=== PATIENT | female | born 1985 | race African-American/Black ===

== ENCOUNTER 2017-03-27 13:08 | Emergency (ER) | payer MEDICARE, MEDICAID ==
[~2017-03-27] VITALS: Ht 165.1 cm; Wt 55.0 kg
[~2017-03-27 13:08] MED LIST: CLON0.3T PO; MINO10TA PO; SERT50TA PO
[2017-03-27 15:57] LABS: BASOPHILS % 0.6 % (0.0-2.0); EOSINOPHILS % 2.1 % (0.0-5.0); HEMATOCRIT. 37.3 % (36.0-48.0); HEMOGLOBIN. 12.5 g/dL (12.0-16.0); LYMPHOCYTES % 24.8 % (20.0-50.0); MEAN CORPUSCULAR HEMOGLOBIN 33.9 pg (28.0-32.0); MEAN CORPUSCULAR VOLUME 101.2 fL (81.0-99.0); MEAN PLATELET VOLUME 12.1 fl (7.4-10.4); MONOCYTES % 7.7 % (2.0-8.0); NEUTROPHILS % 64.8 % (40.0-76.0); PLATELET 116 x1000/uL (130-400); RED BLOOD CELL COUNT 3.69 mill/uL (4.2-5.4); RED CELL DISTRIBUTION WIDTH 18.2 % (11.6-14.6)
[2017-03-27] MEDS ORDERED: HYDROCODONE/ACETAMINOPHEN 5/325MG TABLET PO ONE (20:30)
[2017-03-27] MEDS ORDERED: MINOXIDIL 10MG TABLET PO ONE (20:30)
[2017-03-27] MEDS ORDERED: CLONIDINE 0.3MG TABLET PO ONE (20:30)
[2017-03-27 21:43] VITALS: BP 170/109
== END 2017-03-27 21:49 | disposition home or self-care (01) ==
LOC: ER 16:59
DX: T62.91XA Toxic effect of unspecified noxious substance eaten as food, accidental (unintentional), initial encounter (principal); I12.9 Hypertensive chronic kidney disease with stage 1 through stage 4 chronic kidney disease, or unspecified chronic kidney disease; N18.9 Chronic kidney disease, unspecified; Z99.2 Dependence on renal dialysis; Z88.3 Allergy status to other anti-infective agents; Z88.6 Allergy status to analgesic agent; Y92.89 Other specified places as the place of occurrence of the external cause
CPT/HCPCS: 36415; 80048; 85025; 99284

== ENCOUNTER 2017-10-21 12:21 | Inpatient (IN) | payer MEDICARE, MEDICAID ==
[~2017-10-21] VITALS: Ht 162.6 cm; Wt 67.1 kg
[2017-10-21 13:16] LABS: BASOPHILS % 0.7 % (0.0-2.0); HEMATOCRIT. 30.6 % (36.0-48.0); HEMOGLOBIN. 10.4 g/dL (12.0-16.0); LYMPHOCYTES % 9.4 % (20.0-50.0); MEAN CORPUSCULAR HEMOGLOBIN 32.7 pg (28.0-32.0); MEAN PLATELET VOLUME 9.4 fl (7.4-10.4); MONOCYTES % 3.8 % (2.0-8.0); NEUTROPHILS % 85.1 % (40.0-76.0); PLATELET 137 x1000/uL (130-400); RED BLOOD CELL COUNT 3.19 mill/uL (4.2-5.4); RED CELL DISTRIBUTION WIDTH 16.5 % (11.6-14.6)
[2017-10-21 13:19] LABS: CHLORIDE 102 mEq/L (98-107)
[2017-10-21 13:31] LABS: INR 1.1; PROTHROMBIN TIME 11.3 sec (9.4-11.6)
[2017-10-21] MEDS ORDERED: FAMOTIDINE 20MG/2ML VIAL IV STA (15:35)
[2017-10-21] MEDS ORDERED: ONDANSETRON HCL 4MG/2ML VIAL IV STA (15:35)
[2017-10-21] MEDS ORDERED: MORPHINE SULFATE 4 MG/ML CPJ (NOT FOR IM USE) IV STA (15:35)
[2017-10-21] MEDS ORDERED: DIPHENHYDRAMINE 50MG/ML VIAL IV ONE (15:45)
[2017-10-21 15:59] LABS: ETHANOL BLOOD < 10 mg/dL
[2017-10-21 16:01] LABS: HCG SCREEN NEGATIVE
[2017-10-21] MEDS ORDERED: DIPHENHYDRAMINE 50MG/ML VIAL IV SCH (16:30)
[2017-10-21] MEDS ORDERED: FAMOTIDINE 20MG/2ML VIAL IV SCH (16:30)
[2017-10-21] MEDS ORDERED: MORPHINE SULFATE 4 MG/ML CPJ (NOT FOR IM USE) IV SCH (16:30)
[2017-10-21] MEDS ORDERED: HYDRALAZINE 20MG/ML VIAL IV ONE (18:00)
[2017-10-21] MEDS ORDERED: ONDANSETRON HCL 4MG/2ML VIAL IV PRN (19:45)
[2017-10-21] MEDS ORDERED: IPRATROPIUM/ALBUTEROL 0.5-3(2.5)MG/3ML NEB INH PRN (19:45)
[2017-10-21] MEDS ORDERED: GUAIFENESIN 200MG/10ML SUGAR FREE UDC PO PRN (19:45)
[2017-10-21] MEDS ORDERED: MAGNESIUM/ALUMINUM HYDROXIDE/SIMETHICONE 30ML UDC PO PRN (19:45)
[2017-10-21] MEDS ORDERED: ACETAMINOPHEN 325MG TABLET PO PRN (19:45)
[2017-10-21] MEDS ORDERED: DOCUSATE SODIUM 100MG CAPSULE PO PRN (19:45)
[2017-10-21] MEDS ORDERED: LORAZEPAM 0.5MG TABLET PO PRN (19:45)
[2017-10-21] MEDS ORDERED: NITROGLYCERIN 0.4MG TABLET SL SL PRN (19:45)
[2017-10-21] MEDS ORDERED: TRAMADOL 50MG TABLET PO PRN (20:27)
[2017-10-21] MEDS: CLONIDINE 0.1MG TABLET PO PRN (20:48)
[2017-10-21] MEDS ORDERED: ZOLPIDEM TARTRATE 5MG TABLET PO PRN (21:00)
[2017-10-21] MEDS: METOPROLOL TARTRATE 25MG TABLET PO SCH (21:00)
[2017-10-21] MEDS ORDERED: FAMOTIDINE 20MG TABLET PO SCH (21:00)
[2017-10-21] MEDS ORDERED: NA PHOS,M-B/NA PHOS,DI-BA ENEMA 118ML PR PRN (21:00)
[2017-10-21 23:16] LABS: CREATINE KINASE MB FRACTION 0.6 ng/mL (0.5-3.6)
[2017-10-22] VITALS (7 sets, daily range): BP systolic 141–181; BP diastolic 88–105
[2017-10-22] MEDS ORDERED: DIPH25CA83 PO (02:35)
[2017-10-22] MEDS ORDERED: MINO2.5T19 PO (02:35)
[2017-10-22] MEDS: MORPHINE SULFATE 4 MG/ML CPJ (NOT FOR IM USE) IV PRN ×2 (03:19→22:49)
[2017-10-22] MEDS: DIPHENHYDRAMINE 50MG/ML VIAL IV PRN ×3 (03:19→22:50)
[2017-10-22] MEDS: CLONIDINE 0.1MG TABLET PO PRN (03:20)
[2017-10-22] MEDS: METOCLOPRAMIDE 10MG/10 ML UDC PO SCH ×3 (06:21→18:28)
[2017-10-22 08:08] LABS: CREATINE KINASE MB FRACTION 0.6 ng/mL (0.5-3.6)
[2017-10-22] MEDS ORDERED: FAMOTIDINE 20MG TABLET PO SCH (09:00)
[2017-10-22] MEDS ORDERED: AMLODIPINE 10MG TABLET PO SCH (09:00)
[2017-10-22] MEDS: METOPROLOL TARTRATE 25MG TABLET PO SCH (09:06)
[2017-10-22] MEDS: FOLIC ACID/VITAMIN B COMP W-C TABLET PO SCH (09:07)
[2017-10-22] MEDS: MINOXIDIL 10MG TABLET PO SCH ×2 (09:07→21:48)
[2017-10-22] MEDS: SEVELAMER CARBONATE 800 MG TABLET PO SCH ×3 (09:07→18:28)
[2017-10-22] MEDS ORDERED: HYDRALAZINE 20MG/ML VIAL IV PRN (09:45)
[2017-10-22] MEDS: OMEPRAZOLE 20MG CAPSULE EXTENDED RELEASE PO SCH (12:39)
[2017-10-22] MEDS: CALCIUM CARBONATE 500MG TABLET CHEW PO SCH ×2 (12:40→18:29)
[2017-10-22] MEDS: CLONIDINE 0.3MG TABLET PO SCH ×2 (14:00→22:49)
[2017-10-23] VITALS: BP 134/87
[2017-10-23] MEDS: DIPHENHYDRAMINE 50MG/ML VIAL IV PRN ×2 (02:52→08:28)
[2017-10-23] MEDS: MORPHINE SULFATE 4 MG/ML CPJ (NOT FOR IM USE) IV PRN (02:52)
[2017-10-23 03:34] VITALS: BP 145/93
[2017-10-23] MEDS: OMEPRAZOLE 20MG CAPSULE EXTENDED RELEASE PO SCH (06:19)
[2017-10-23] MEDS: METOCLOPRAMIDE 10MG/10 ML UDC PO SCH ×2 (06:19→11:24)
[2017-10-23] MEDS: CLONIDINE 0.3MG TABLET PO SCH ×2 (06:19→13:54)
[2017-10-23 07:22] LABS: BASOPHILS % 0.4 % (0.0-2.0); EOSINOPHILS % 5.6 % (0.0-5.0); HEMATOCRIT. 32.4 % (36.0-48.0); HEMOGLOBIN. 10.7 g/dL (12.0-16.0); MEAN CORPUSCULAR HEMOGLOBIN 32.3 pg (28.0-32.0); MEAN CORPUSCULAR VOLUME 97.8 fL (81.0-99.0); MEAN PLATELET VOLUME 10.1 fl (7.4-10.4); MONOCYTES % 4.8 % (2.0-8.0); NEUTROPHILS % 69.2 % (40.0-76.0); PLATELET 107 x1000/uL (130-400); RED BLOOD CELL COUNT 3.32 mill/uL (4.2-5.4); RED CELL DISTRIBUTION WIDTH 17.4 % (11.6-14.6)
[2017-10-23 07:45] LABS: PHOSPHORUS 3.3 mg/dL (2.5-4.9)
[2017-10-23 08:00] VITALS: BP 144/93
[2017-10-23] MEDS: MINOXIDIL 10MG TABLET PO SCH (08:27)
[2017-10-23] MEDS: CALCIUM CARBONATE 500MG TABLET CHEW PO SCH ×2 (08:27→11:24)
[2017-10-23] MEDS: SEVELAMER CARBONATE 800 MG TABLET PO SCH ×2 (08:27→11:24)
[2017-10-23] MEDS: FOLIC ACID/VITAMIN B COMP W-C TABLET PO SCH (08:28)
[2017-10-23] MEDS ORDERED: LOSARTAN POTASSIUM 50 MG TABLET PO SCH (09:00)
[2017-10-23] MEDS ORDERED: FOLIC ACID/VITAMIN B COMP W-C TABLET PO SCH (09:00)
[2017-10-23] MEDS ORDERED: LOSA50TA3 PO (09:51)
[2017-10-23] MEDS ORDERED: METO-293 PO (09:52)
[2017-10-23] MEDS ORDERED: OMEP20CA10 PO (09:52)
[2017-10-23 10:44] VITALS: BP 135/78
[2017-10-23 12:00] VITALS: BP 130/85
== END 2017-10-23 15:10 | disposition home or self-care (01) | DRG 291 ==
LOC: ER 12:32 → EDBEDREQ 18:45 → SUPCPDRO 21:51 → ENRESERV 22:31 → 8WST 22:31
PROVIDERS: ADMIT Internal Medicine; ATTEND Internal Medicine
PROC: 5A1D70Z Performance of Urinary Filtration, Intermittent, Less than 6 Hours Per Day (ICD-10-PCS; principal; 2017-10-22)
DX: I13.2 Hypertensive heart and chronic kidney disease with heart failure and with stage 5 chronic kidney disease, or end stage renal disease (principal); N18.6 End stage renal disease; D69.6 Thrombocytopenia, unspecified; E83.39 Other disorders of phosphorus metabolism; N25.81 Secondary hyperparathyroidism of renal origin; I50.33 Acute on chronic diastolic (congestive) heart failure; K29.70 Gastritis, unspecified, without bleeding; D63.8 Anemia in other chronic diseases classified elsewhere; N20.0 Calculus of kidney; G89.29 Other chronic pain; R63.4 Abnormal weight loss; Z99.2 Dependence on renal dialysis; Z82.49 Family history of ischemic heart disease and other diseases of the circulatory system; Z79.899 Other long term (current) drug therapy; Z83.3 Family history of diabetes mellitus; Z88.6 Allergy status to analgesic agent; Z88.1 Allergy status to other antibiotic agents; Z88.8 Allergy status to other drugs, medicaments and biological substances
CPT/HCPCS: 36415; 71045; 74176; 80048; 80053; 80061; 82550; 82553; 83036; 83690; 83735; 83880; 84100; 84484; 84703; 85025; 85610; 87040; 93005; 93970; 96374; 96375; 96376; 99285; G0482; J0360; J1200; J2270; J2405; J3490; J7030; J8597

== ENCOUNTER 2019-07-04 18:13 | Inpatient (IN) | payer MEDICARE, MEDICAID ==
[~2019-07-04] VITALS: Ht 165.1 cm; Wt 49.9 kg
[~2019-07-04 18:13] MED LIST changes: +DIPH25CA83 PO; +LOSA50TA3 PO; +METO-293 PO; -MINO10TA PO; +MINO2.5T19 PO; +OMEP20CA5 PO; -SERT50TA PO
[2019-07-04] MEDS ORDERED: CLONIDINE 0.2MG TABLET PO NR (22:30)
[2019-07-04] MEDS ORDERED: KETOROLAC 30MG/ML VIAL IV ONE (22:30)
[2019-07-04] MEDS ORDERED: SODIUM CHLORIDE 0.9% 500 ML IV ONE (22:30)
[2019-07-04 22:46] LABS: BASOPHILS % 1.2 % (0.0-2.0); EOSINOPHILS % 2.9 % (0.0-5.0); HEMATOCRIT. 34.1 % (36.0-48.0); HEMOGLOBIN. 11.2 g/dL (12.0-16.0); LYMPHOCYTES % 21.3 % (20.0-50.0); MEAN CORPUSCULAR HEMOGLOBIN 32.2 pg (28.0-32.0); MEAN CORPUSCULAR VOLUME 97.7 fL (81.0-99.0); MEAN PLATELET VOLUME 10.5 fl (7.4-10.4); NEUTROPHILS % 68.6 % (40.0-76.0); PLATELET 111 x1000/uL (130-400); RED BLOOD CELL COUNT 3.49 mill/uL (4.2-5.4); RED CELL DISTRIBUTION WIDTH 19.1 % (11.6-14.6)
[2019-07-04 22:51] LABS: HCG SCREEN NEGATIVE
[2019-07-04 22:52] LABS: CHLORIDE 105 mEq/L (98-107)
[2019-07-04] MEDS ORDERED: HYDRALAZINE 20MG/ML VIAL IV ONE (23:30)
[2019-07-05] MEDS: BENZONATATE 100MG CAPSULE PO ONE ×2 (00:33→00:36)
[2019-07-05] MEDS ORDERED: HYDRALAZINE 20MG/ML VIAL IV ONE (01:30)
[2019-07-05] MEDS ORDERED: HYDRALAZINE 20MG/ML VIAL IV PRN ×2 (02:00→03:45)
[2019-07-05] MEDS ORDERED: GUAIFENESIN 200MG/10ML SUGAR FREE UDC PO PRN (02:00)
[2019-07-05] MEDS ORDERED: ONDANSETRON HCL 4MG/2ML INJ IV PRN (02:00)
[2019-07-05] MEDS ORDERED: CLONIDINE 0.1MG TABLET PO PRN (02:00)
[2019-07-05] MEDS: IPRATROPIUM/ALBUTEROL 0.5-3(2.5)MG/3ML NEB HHN SCH (02:30)
[2019-07-05] MEDS ORDERED: LEVOFLOXACIN 500MG PREMIX 100 ML IV NR (02:45)
[2019-07-05] MEDS: DIPHENHYDRAMINE 50MG/ML VIAL IV PRN ×3 (03:04→19:36)
[2019-07-05] MEDS: IPRATROPIUM/ALBUTEROL 0.5-3(2.5)MG/3ML NEB HHN PRN (04:20)
[2019-07-05] MEDS: ACETAMINOPHEN 325MG TABLET PO PRN ×2 (05:50→09:38)
[2019-07-05] MEDS: CLONIDINE 0.3MG TABLET PO SCH ×3 (08:22→21:08)
[2019-07-05] MEDS ORDERED: MINOXIDIL 2.5MG TABLET PO SCH (09:00)
[2019-07-05] MEDS ORDERED: FAMOTIDINE 20MG/2ML VIAL IV SCH (09:00)
[2019-07-05] MEDS ORDERED: MINOXIDIL 10MG TABLET PO SCH (11:15)
[2019-07-05] MEDS: FAMOTIDINE 20MG/2ML VIAL IV SCH (11:47)
[2019-07-05] MEDS ORDERED: LABETALOL 5MG/ML SYR 20 MG/4 ML SYRINGE IV ONE (12:30)
[2019-07-05 16:00] VITALS: BP 183/118
[2019-07-05 16:15] VITALS: BP 183/118
[2019-07-05] MEDS: CALCIUM CARBONATE 500MG TABLET CHEW PO SCH (17:58)
[2019-07-05] MEDS: BENZONATATE 100MG CAPSULE PO SCH ×2 (18:00→21:09)
[2019-07-05 20:00] VITALS: BP 179/108
[2019-07-05] MEDS: GUAIFENESIN 600MG ER TABLET PO SCH (21:08)
[2019-07-05] MEDS: MINOXIDIL 10MG TABLET PO SCH (21:09)
[2019-07-06] VITALS: BP 161/105
[2019-07-06 04:00] VITALS: BP 183/111
[2019-07-06] MEDS: BENZONATATE 100MG CAPSULE PO SCH ×3 (05:13→22:15)
[2019-07-06] MEDS: DIPHENHYDRAMINE 50MG/ML VIAL IV PRN ×4 (05:14→20:19)
[2019-07-06] MEDS: CLONIDINE 0.3MG TABLET PO SCH ×3 (05:14→22:19)
[2019-07-06 05:57] LABS: BASOPHILS % 1.3 % (0.0-2.0); EOSINOPHILS % 2.3 % (0.0-5.0); HEMATOCRIT. 32.9 % (36.0-48.0); LYMPHOCYTES % 24.7 % (20.0-50.0); MEAN CORPUSCULAR HEMOGLOBIN 31.9 pg (28.0-32.0); MEAN CORPUSCULAR VOLUME 95.6 fL (81.0-99.0); MONOCYTES % 5.9 % (2.0-8.0); NEUTROPHILS % 65.8 % (40.0-76.0); PLATELET 105 x1000/uL (130-400); RED BLOOD CELL COUNT 3.44 mill/uL (4.2-5.4); RED CELL DISTRIBUTION WIDTH 19.5 % (11.6-14.6)
[2019-07-06 06:24] LABS: PHOSPHORUS 6.2 mg/dL (2.5-4.9)
[2019-07-06 08:00] VITALS: BP 177/101
[2019-07-06] MEDS: CALCIUM CARBONATE 500MG TABLET CHEW PO SCH ×3 (08:10→17:31)
[2019-07-06] MEDS: CLONIDINE 0.1MG TABLET PO PRN ×3 (08:27→22:15)
[2019-07-06] MEDS: IPRATROPIUM/ALBUTEROL 0.5-3(2.5)MG/3ML NEB HHN SCH ×3 (08:40→20:47)
[2019-07-06] MEDS: FAMOTIDINE 20MG/2ML VIAL IV SCH (09:00)
[2019-07-06] MEDS: IPRATROPIUM/ALBUTEROL 0.5-3(2.5)MG/3ML NEB HHN PRN (09:45)
[2019-07-06 12:00] VITALS: BP 202/106
[2019-07-06] MEDS: FOLIC ACID/VITAMIN B COMP W-C TABLET PO SCH (12:06)
[2019-07-06] MEDS: GUAIFENESIN 600MG ER TABLET PO SCH ×2 (12:06→20:18)
[2019-07-06] MEDS: MINOXIDIL 10MG TABLET PO SCH ×2 (12:06→21:00)
[2019-07-06] MEDS: NIFEDIPINE XL 30MG TAB PO SCH ×2 (13:50→22:16)
[2019-07-06 17:20] VITALS: BP 198/104
[2019-07-06 20:00] VITALS: BP 168/90
[2019-07-06] MEDS ORDERED: FAMOTIDINE 20MG TABLET PO SCH (21:00)
[2019-07-07] VITALS: BP 150/87
[2019-07-07] MEDS: DIPHENHYDRAMINE 50MG/ML VIAL IV PRN ×2 (01:48→08:43)
[2019-07-07] MEDS: IPRATROPIUM/ALBUTEROL 0.5-3(2.5)MG/3ML NEB HHN SCH ×3 (01:51→16:45)
[2019-07-07 04:00] VITALS: BP 165/94
[2019-07-07] MEDS: BENZONATATE 100MG CAPSULE PO SCH ×2 (05:15→14:05)
[2019-07-07] MEDS: CLONIDINE 0.3MG TABLET PO SCH ×2 (05:16→12:46)
[2019-07-07 08:00] VITALS: BP 149/96
[2019-07-07] MEDS ORDERED: LEVOFLOXACIN 250MG PREMIX 50 ML IV SCH (08:00)
[2019-07-07] MEDS: NIFEDIPINE XL 30MG TAB PO SCH (08:42)
[2019-07-07] MEDS: GUAIFENESIN 600MG ER TABLET PO SCH (08:42)
[2019-07-07] MEDS: FOLIC ACID/VITAMIN B COMP W-C TABLET PO SCH (08:42)
[2019-07-07] MEDS: CALCIUM CARBONATE 500MG TABLET CHEW PO SCH ×2 (08:43→12:46)
[2019-07-07] MEDS: MINOXIDIL 10MG TABLET PO SCH (08:43)
[2019-07-07] MEDS ORDERED: LEVOFLOXACIN 250MG TABLET PO SCH ×2 (09:00→11:00)
[2019-07-07 12:00] VITALS: BP 190/112
[2019-07-07 15:38] VITALS: BP 171/98
[2019-07-07 16:00] VITALS: BP 176/98
[2019-07-07] MEDS ORDERED: NIFEDIPINE XL 30MG TAB PO SCH (21:00)
== END 2019-07-07 17:38 | disposition home or self-care (01) | DRG 304 ==
LOC: ER 18:36 → 7WST 07-05 01:30 → EDBEDREQSVC 07-05 07:39 → CANRESERV 07-05 14:02 → ENRESERV 07-05 14:02 → UNDODISIN 07-07 16:47
PROVIDERS: ADMIT Internal Medicine; ATTEND Internal Medicine
PROC: 5A1D70Z Performance of Urinary Filtration, Intermittent, Less than 6 Hours Per Day (ICD-10-PCS; principal; 2019-07-06)
DX: I16.0 Hypertensive urgency (principal); N18.6 End stage renal disease; N25.81 Secondary hyperparathyroidism of renal origin; J20.9 Acute bronchitis, unspecified; I12.0 Hypertensive chronic kidney disease with stage 5 chronic kidney disease or end stage renal disease; E87.5 Hyperkalemia; R60.0 Localized edema; F12.90 Cannabis use, unspecified, uncomplicated; Z99.2 Dependence on renal dialysis; Z83.3 Family history of diabetes mellitus; Z84.1 Family history of disorders of kidney and ureter; Z87.442 Personal history of urinary calculi; Z87.01 Personal history of pneumonia (recurrent); Z88.5 Allergy status to narcotic agent; Z88.1 Allergy status to other antibiotic agents
CPT/HCPCS: 36415; 71045; 80048; 80053; 83880; 84100; 84484; 84703; 85025; 87804; 93005; 94640; 96365; 96375; 96376; 99291; J0360; J1200; J1885; J1956; J3490; J7040; J7620

== ENCOUNTER 2019-08-27 12:28 | Inpatient (IN) | payer MEDICARE, MEDICAID ==
[~2019-08-27] VITALS: Ht 165.1 cm; Wt 22.7 kg
[~2019-08-27 12:28] MED LIST changes: +OMEP20CA14 PO; -OMEP20CA5 PO
[2019-08-27] MEDS ORDERED: HYDRALAZINE 20MG/ML VIAL IV ONE ×2 (14:30→16:45)
[2019-08-27 15:31] LABS: BASOPHILS % 1.4 % (0.0-2.0); EOSINOPHILS % 1.3 % (0.0-5.0); HEMATOCRIT. 38.3 % (36.0-48.0); HEMOGLOBIN. 12.6 g/dL (12.0-16.0); LYMPHOCYTES % 20.5 % (20.0-50.0); MEAN CORPUSCULAR HEMOGLOBIN 32.5 pg (28.0-32.0); MEAN CORPUSCULAR VOLUME 99.1 fL (81.0-99.0); MEAN PLATELET VOLUME 8.9 fl (7.4-10.4); MONOCYTES % 4.5 % (2.0-8.0); NEUTROPHILS % 72.3 % (40.0-76.0); PLATELET 140 x1000/uL (130-400); RED BLOOD CELL COUNT 3.87 mill/uL (4.2-5.4); RED CELL DISTRIBUTION WIDTH 20.4 % (11.6-14.6)
[2019-08-27 15:33] LABS: CHLORIDE 94 mEq/L (98-107)
[2019-08-27 15:41] LABS: HCG SCREEN NEGATIVE
[2019-08-27 15:49] LABS: INR 1.2; PROTHROMBIN TIME 12.6 sec (9.6-11.0)
[2019-08-27] MEDS ORDERED: ACETAMINOPHEN 325MG TABLET PO ONE (16:30)
[2019-08-27] MEDS ORDERED: DIPHENHYDRAMINE 25MG CAPSULE PO ONE (16:30)
[2019-08-27] MEDS ORDERED: DOCUSATE SODIUM 100MG CAPSULE PO PRN (17:45)
[2019-08-27] MEDS ORDERED: ACETAMINOPHEN 325MG TABLET PO PRN (17:45)
[2019-08-27] MEDS ORDERED: IPRATROPIUM/ALBUTEROL 0.5-3(2.5)MG/3ML NEB NEB PRN (17:45)
[2019-08-27] MEDS ORDERED: MAGNESIUM/ALUMINUM HYDROXIDE/SIMETHICONE 30ML UDC PO PRN (17:45)
[2019-08-27] MEDS ORDERED: ONDANSETRON HCL 4MG/2ML INJ IV PRN (17:45)
[2019-08-27] MEDS ORDERED: GUAIFENESIN 200MG/10ML SUGAR FREE UDC PO PRN (17:45)
[2019-08-27] MEDS ORDERED: LOSARTAN POTASSIUM 50 MG TABLET PO SCH (18:00)
[2019-08-27] MEDS ORDERED: NIFEDIPINE XL 90MG TAB PO SCH (18:00)
[2019-08-27] MEDS: ENOXAPARIN 30MG/0.3ML SYR SUBCUT SCH (18:01)
[2019-08-27] MEDS: MINOXIDIL 10MG TABLET PO SCH (19:00)
[2019-08-27] MEDS: CLONIDINE 0.1MG TABLET PO PRN (19:00)
[2019-08-27] MEDS: DIPHENHYDRAMINE 50MG/ML VIAL IV PRN ×2 (19:01→21:18)
[2019-08-27] MEDS: LORAZEPAM 0.5MG TABLET PO PRN (21:19)
[2019-08-27] MEDS ORDERED: CLONIDINE 0.3MG TABLET PO SCH (23:15)
[2019-08-28] MEDS: LORAZEPAM 0.5MG TABLET PO PRN (02:04)
[2019-08-28] MEDS: CLONIDINE 0.1MG TABLET PO PRN ×2 (02:04→12:32)
[2019-08-28 02:55] VITALS: BP 176/110
[2019-08-28 04:00] VITALS: BP 176/117
[2019-08-28] MEDS: ZOLPIDEM TARTRATE 5MG TABLET PO PRN ×2 (04:45→21:46)
[2019-08-28] MEDS: MINOXIDIL 10MG TABLET PO SCH ×2 (06:15→18:00)
[2019-08-28 07:27] LABS: EOSINOPHILS % 0.3 % (0.0-5.0); HEMATOCRIT. 36.6 % (36.0-48.0); HEMOGLOBIN. 12.1 g/dL (12.0-16.0); LYMPHOCYTES % 12.6 % (20.0-50.0); MEAN CORPUSCULAR HEMOGLOBIN 32.1 pg (28.0-32.0); MEAN CORPUSCULAR VOLUME 97.3 fL (81.0-99.0); MEAN PLATELET VOLUME 9.2 fl (7.4-10.4); MONOCYTES % 5.3 % (2.0-8.0); NEUTROPHILS % 80.8 % (40.0-76.0); PLATELET 151 x1000/uL (130-400); RED BLOOD CELL COUNT 3.76 mill/uL (4.2-5.4); RED CELL DISTRIBUTION WIDTH 21.3 % (11.6-14.6)
[2019-08-28 07:59] LABS: PHOSPHORUS 3.6 mg/dL (2.5-4.9)
[2019-08-28 08:00] VITALS: BP 190/111
[2019-08-28 08:04] LABS: CREATINE KINASE MB FRACTION 4.2 ng/mL (0.5-3.6)
[2019-08-28] MEDS: CALCIUM CARBONATE 500MG TABLET CHEW PO SCH ×3 (08:39→18:17)
[2019-08-28] MEDS: CLONIDINE 0.3MG TABLET PO SCH ×2 (08:39→16:54)
[2019-08-28] MEDS: FAMOTIDINE 20MG TABLET PO SCH (08:39)
[2019-08-28] MEDS ORDERED: SEVELAMER CARBONATE 800 MG TABLET PO SCH (09:00)
[2019-08-28] MEDS ORDERED: DIATR MEGLU/DIATRIZOATE SOLN 30ML PO SCH (09:30)
[2019-08-28] MEDS: CARVEDILOL 6.25 MG TABLET PO SCH ×2 (09:43→21:46)
[2019-08-28] MEDS: DIPHENHYDRAMINE 50MG/ML VIAL IV PRN ×3 (10:27→23:05)
[2019-08-28 12:00] VITALS: BP 184/115
[2019-08-28] MEDS: METOCLOPRAMIDE HCL 5MG TABLET PO SCH ×3 (12:32→21:46)
[2019-08-28 16:00] VITALS: BP 180/106
[2019-08-28] MEDS: ENOXAPARIN 30MG/0.3ML SYR SUBCUT SCH ×2 (18:00→18:17)
[2019-08-28] MEDS ORDERED: NIFEDIPINE XL 30MG TAB PO SCH (18:00)
[2019-08-28 20:00] VITALS: BP 182/108
[2019-08-29] VITALS: BP 179/106
[2019-08-29] MEDS: CLONIDINE 0.1MG TABLET PO PRN ×2 (00:42→13:16)
[2019-08-29] MEDS: CLONIDINE 0.3MG TABLET PO SCH ×2 (00:43→08:01)
[2019-08-29 04:00] VITALS: BP 203/108
[2019-08-29] MEDS: MINOXIDIL 10MG TABLET PO SCH (05:28)
[2019-08-29] MEDS: DIPHENHYDRAMINE 50MG/ML VIAL IV PRN ×2 (05:29→12:16)
[2019-08-29 08:00] VITALS: BP 178/118
[2019-08-29] MEDS: CALCIUM CARBONATE 500MG TABLET CHEW PO SCH ×2 (08:01→13:48)
[2019-08-29] MEDS: METOCLOPRAMIDE HCL 5MG TABLET PO SCH ×2 (08:01→13:48)
[2019-08-29] MEDS: CARVEDILOL 6.25 MG TABLET PO SCH (08:01)
[2019-08-29] MEDS: FAMOTIDINE 20MG TABLET PO SCH (08:01)
[2019-08-29 08:13] LABS: BASOPHILS % 1.1 % (0.0-2.0); EOSINOPHILS % 3.1 % (0.0-5.0); HEMATOCRIT. 35.6 % (36.0-48.0); HEMOGLOBIN. 11.7 g/dL (12.0-16.0); LYMPHOCYTES % 21.8 % (20.0-50.0); MEAN CORPUSCULAR HEMOGLOBIN 32.6 pg (28.0-32.0); MEAN CORPUSCULAR VOLUME 99.2 fL (81.0-99.0); MONOCYTES % 5.6 % (2.0-8.0); NEUTROPHILS % 68.4 % (40.0-76.0); PLATELET 121 x1000/uL (130-400); RED BLOOD CELL COUNT 3.59 mill/uL (4.2-5.4); RED CELL DISTRIBUTION WIDTH 21.3 % (11.6-14.6)
[2019-08-29 09:05] LABS: CHLORIDE 104 mEq/L (98-107)
[2019-08-29 09:12] LABS: PHOSPHORUS 3.1 mg/dL (2.5-4.9)
[2019-08-29 09:50] VITALS: BP 178/118
[2019-09-03 04:07] LABS: METANEPHRINE PLASMA 183 pg/mL (0-62); NORMETANEPHRINE PLASMA 774 pg/mL (0-145)
== END 2019-08-29 15:05 | disposition left against medical advice (07) | DRG 291 ==
LOC: ER 12:44 → EDBEDREQ 17:37 → EDBEDREQTM 17:37 → ENRESERV 23:12 → 7WST 08-28 00:46
PROVIDERS: ADMIT Internal Medicine; ATTEND Internal Medicine
PROC: 5A1D70Z Performance of Urinary Filtration, Intermittent, Less than 6 Hours Per Day (ICD-10-PCS; principal; 2019-08-29)
DX: I13.2 Hypertensive heart and chronic kidney disease with heart failure and with stage 5 chronic kidney disease, or end stage renal disease (principal); N18.6 End stage renal disease; E87.1 Hypo-osmolality and hyponatremia; I50.30 Unspecified diastolic (congestive) heart failure; E21.3 Hyperparathyroidism, unspecified; F32.9 Major depressive disorder, single episode, unspecified; K21.9 Gastro-esophageal reflux disease without esophagitis; D64.9 Anemia, unspecified; Z91.14 Patient's other noncompliance with medication regimen; Z99.2 Dependence on renal dialysis; Z79.899 Other long term (current) drug therapy; Z82.49 Family history of ischemic heart disease and other diseases of the circulatory system; Z87.11 Personal history of peptic ulcer disease; Z88.6 Allergy status to analgesic agent; Z88.1 Allergy status to other antibiotic agents
CPT/HCPCS: 36415; 71045; 74176; 80048; 80053; 82533; 82550; 82553; 83036; 83835; 84100; 84484; 84703; 85025; 93005; 93970; 99285; J0360; J1200; J1650; J2405; J8597; Q0163; Q9963

== ENCOUNTER → 2021-08-02 | Outpatient (CLI) | payer MEDICARE, MEDICAID | END | disposition home or self-care (01) | LOC: US 07:19 | PROVIDERS: ATTEND Internal Medicine Gastroenterology | DX: R18.8 Other ascites (principal); R10.9 Unspecified abdominal pain | CPT/HCPCS: 76705 ==

== ENCOUNTER 2022-07-15 15:46 | Emergency (ER) | payer MEDICARE, MEDICAID | END 2022-07-15 16:26 | disposition left against medical advice (07) | LOC: ER 15:46 | DX: Z53.21 Procedure and treatment not carried out due to patient leaving prior to being seen by health care provider (principal) ==

== ENCOUNTER 2022-07-15 17:08 | Emergency (ER) | payer MEDICARE, MEDICAID ==
[~2022-07-15] VITALS: Ht 165.1 cm; Wt 53.0 kg
[2022-07-15 17:38] VITALS: BP 160/93
[2022-07-15 21:14] LABS: BASOPHILS % 0.9 % (0.0-2.0); EOSINOPHILS % 0.1 % (0.0-5.0); HEMATOCRIT. 24.3 % (36.0-48.0); HEMOGLOBIN. 8.1 g/dL (12.0-16.0); LYMPHOCYTES % 10.5 % (20.0-50.0); MEAN CORPUSCULAR HEMOGLOBIN 30.4 pg (28.0-32.0); MEAN CORPUSCULAR VOLUME 90.7 fL (81.0-99.0); MEAN PLATELET VOLUME 9.9 fl (7.4-10.4); NEUTROPHILS % 79.5 % (40.0-76.0); PLATELET 172 x1000/uL (130-400); RED BLOOD CELL COUNT 2.68 mill/uL (4.2-5.4); RED CELL DISTRIBUTION WIDTH 17.8 % (11.6-14.6)
[2022-07-15 21:22] LABS: CHLORIDE 94 mEq/L (98-107)
== END 2022-07-15 23:01 | disposition home or self-care (01) ==
LOC: ER 17:08
DX: T82.838A Hemorrhage due to vascular prosthetic devices, implants and grafts, initial encounter (principal); N17.9 Acute kidney failure, unspecified; I12.0 Hypertensive chronic kidney disease with stage 5 chronic kidney disease or end stage renal disease; N18.6 End stage renal disease; Z99.2 Dependence on renal dialysis; Z88.3 Allergy status to other anti-infective agents; Z88.5 Allergy status to narcotic agent; Y84.1 Kidney dialysis as the cause of abnormal reaction of the patient, or of later complication, without mention of misadventure at the time of the procedure; Y92.018 Other place in single-family (private) house as the place of occurrence of the external cause
CPT/HCPCS: 36415; 80053; 85025; 99283